=== PATIENT | male | born 1955 | race African-American/Black ===

== ENCOUNTER 2019-09-13 13:03 | Outpatient (CLI) | payer BC ==
--- NOTE | 2019-09-13 14:18 | ULT ---
THYROID ULTRASOUND INDICATION: Hypercalcemia TECHNIQUE: Grayscale and color Doppler images were obtained of the thyroid gland. COMPARISON: None FINDINGS: Right thyroid lobe: The right thyroid lobe measures 5.1 x 1.2 x 1.6 cm. There are numerous nodules wi thin the right thyroid lobe all less than 1 cm in size. The largest nodule is a mixed isoechoic and hypoechoic solid nodule in the superior pole of the right thyroid gland measuring 6 mm. Thyroid isthmus: The thyroid isthmus measures 0.3 cm. There is a 6 mm hypoechoic nodule seen within t he midline thyroid isthmus. Left thyroid lobe: The left thyroid lobe measures 5.0 x 1.8 x 2.0 cm. There are numerous nodules with in the left thyroid lobe. The largest is seen within the inferior pole measuring 7 mm. This nodule is hypoechoic. IMPRESSION: 1. No suspicious parathyroid mass to suggest presence of a parathyroid adenoma. If clinical suspicion remains, further evaluation with a nuclear medicine parathyroid scan or a CT the soft tissues of the neck utilizing a parathyroid adenoma protocol may be helpful. 2. Multiple thyroid nodules, none of which are suspicious by size or morphology. The most suspicious nodule is seen within the lower left thyroid lobe and is consistent with a TIRADS 3 lesion. No additional sonographic follow-up is recommended.
== END 2019-09-13 13:04 | disposition home or self-care (01) ==
LOC: BICULT 13:03
PROVIDERS: ATTEND Internal Medicine Endocrinology, Diabetes & Metabolism
DX: E83.52 Hypercalcemia (principal); E04.1 Nontoxic single thyroid nodule
CPT/HCPCS: 76536

== ENCOUNTER 2022-03-20 07:43 | Outpatient (CLI) | payer BC | END 2022-03-20 07:44 | disposition home or self-care (01) | LOC: ULT 07:43 | PROVIDERS: ATTEND Internal Medicine Endocrinology, Diabetes & Metabolism | DX: E04.1 Nontoxic single thyroid nodule (principal); D35.1 Benign neoplasm of parathyroid gland | CPT/HCPCS: 76536; 78072; A9500 ==

== ENCOUNTER 2024-08-09 10:51 | Outpatient (CLI) | payer MEDICARE | END 2024-08-09 10:52 | disposition home or self-care (01) | LOC: BICMRI 10:51 | PROVIDERS: ATTEND Orthopaedic Surgery | DX: S83.242A Other tear of medial meniscus, current injury, left knee, initial encounter (principal); M17.12 Unilateral primary osteoarthritis, left knee; S72.432A Displaced fracture of medial condyle of left femur, initial encounter for closed fracture ==